=== PATIENT | female | born 1950 | race African-American/Black ===

== ENCOUNTER 2019-02-10 09:33 | Inpatient (IN) | payer BC, MEDICARE ==
[~2019-02-10] VITALS: Ht 160 cm; Wt 78.5 kg
--- NOTE | 2019-02-10 09:50 | NUR ---
PATIENT BIBHUSBAND C/O HER BALANCE BEING OFF. 3 FALLS THIS WEEK. DROWSY UPON WAKING UP THIS AM. ON ROOM AIR, BREATHING EVENLY AND UNLABORED. CONNECTED TO THE MONITOR AND PULSE OX. KEPT COMFORTABLE, WILL CONTINUE TO MONITOR ACCORDINGLY.
[2019-02-10] MEDS ORDERED: IV NS 0.9% 1,000 ML BAG IV ONE (10:00)
[2019-02-10 10:09] LABS: BASOPHILS # (AUTO) 0.1 /CMM (0.0-0.2); EOSINOPHILS % (AUTO) 1.1 % (0.0-6.0); HEMATOCRIT 49 % (33-45); HEMOGLOBIN 16.2 g/dL (11.5-14.8); LYMPHOCYTES # (AUTO) 2.2 /CMM (0.8-4.8); LYMPHOCYTES % (AUTO) 37.7 % (20.0-44.0); MEAN CORPUSCULAR HGB CONC 33 g/dl (31.0-36.0); MEAN CORPUSCULAR VOLUME 90 fL (82-100); MONOCYTES # (AUTO) 0.4 /CMM (0.1-1.30); MONOCYTES % (AUTO) 6.9 % (2.0-12.0); NEUTROPHILS # (AUTO) 3.2 /CMM (1.8-8.9); NEUTROPHILS % (AUTO) 53.3 % (43.0-81.0); PLATELET COUNT (AUTO) 286 /CMM (150-450); RED BLOOD CELL COUNT(AUTO) 5.41 MIL/uL (4.0-5.2); WHITE BLOOD COUNT (AUTO) 5.9 K/uL (4.3-11.0)
[2019-02-10 10:18] LABS: ALANINE AMINOTRANSFERASE 11 U/L (12-78); ALBUMIN 4.5 g/dL (3.4-5.0); ALKALINE PHOSPHATASE 69 U/L (46-116); ASPARTATE AMINOTRANSFERASE 19 U/L (15-37); BILIRUBIN,DIRECT 0.2 mg/dL (0.0-0.2); BILIRUBIN,TOTAL 0.6 mg/dL (0.2-1.0); CALCIUM, SERUM 9.7 mg/dL (8.5-10.1); CARBON DIOXIDE 29 mmol/L (21-32); CHLORIDE 98 mmol/L (98-107); CREATININE 1.5 mg/dL (0.6-1.3); GLUCOSE 103 mg/dL (74-106); SODIUM SERUM 137 mmol/L (136-145); UREA NITROGEN, BLOOD 15 mg/dL (7-18)
[2019-02-10 10:19] LABS: POTASSIUM 2.7 mmol/L (3.5-5.1)
[2019-02-10] MEDS ORDERED: FLUT1BLS IH (10:46)
[2019-02-10] MEDS ORDERED: AMLO-62 PO (10:46)
[2019-02-10] MEDS ORDERED: ERGO500014 PO (10:46)
[2019-02-10] MEDS ORDERED: SERT100T12 PO (10:46)
[2019-02-10] MEDS ORDERED: LAMO100T PO (10:46)
[2019-02-10] MEDS ORDERED: ALPR2TAB7 PO (10:46)
[2019-02-10] MEDS ORDERED: TIOT4MIS5 IH (10:46)
[2019-02-10] MEDS ORDERED: ALBU18HF2 IH (10:46)
[2019-02-10] MEDS ORDERED: HYDR25TA4 PO (10:46)
[2019-02-10] MEDS ORDERED: METO50TA16 PO (10:46)
[2019-02-10] MEDS ORDERED: DESV100T16 PO (10:46)
[2019-02-10] MEDS ORDERED: CARI350T27 PO (10:46)
[2019-02-10] MEDS ORDERED: ASPIRIN 325 MG TABLET PO ONE (11:00)
[2019-02-10] MEDS ORDERED: ASPIRIN 325 MG TABLET ONE (11:01)
[2019-02-10 11:02] LABS: CHOLESTEROL 170 mg/dL (<200); HDL CHOLESTEROL 33 mg/dL (40-60); LDL 115 mg/dL (0-99); TRIGLYCERIDES 98 mg/dL (30-150)
--- NOTE | 2019-02-10 11:09 | NUR ---
324-[address] DONNELLY
[2019-02-10] MEDS ORDERED: POTASSIUM CL. PREMIX PERIPHER. 100 ML ONE (11:12)
[2019-02-10] MEDS: POTASSIUM CL. PREMIX PERIPHER. 50 ML IV SCH ×2 (11:15→13:49)
--- NOTE | 2019-02-10 11:26 | NUR ---
Report given to Joselyn ZIMMERMAN for alyssa.
[2019-02-10 11:40] VITALS: BP 138/79
--- NOTE | 2019-02-10 11:47 | NUR ---
Wheeled patient via gurney accompanied by RN and EMT in no apparent distress noted. IV potassium transferred while infusing. Endorsed to receiving nurse to continue and finish the 2 bags of potassium and made aware. Joselyn ZIMMERMAN at bedside to assume care.
[2019-02-10 11:50] VITALS: BP 138/79
--- NOTE | 2019-02-10 11:50 | NUR ---
MOTIVATIONAL SPEAKER NOTES PATIENT ADMITTED FROM ER TELE ON Dx-OF GAIT [place] FALLS. PATIENT 68Y/OLD FEMALE A/O X4 ABLE TO CORRECTLT INTERPRITE THE ENVIRONMENT. TELE MONITOR ON SR-79. PATIENT WAS COMPLAINING OF HEAD, AND LOWER BACK 3/10 PER PAIN SCALE. ADMINISTERED TYLENOL 650MG PO PRN PER PATIENT REQUEST. SKIN INTACT, V/S TAKEN BP 138/79,P-78, R-19, T-99.1, O2-94ROOM AIR. DVT PUMP ON. NEEDS ATTENDED AND ANTICIPATED. IV ACCESS ON RIGHT AC AREA INTACT INFUSING KCL 50 ML/HR INTACT. Dr LANDRY AWARE OF NEW PATIENT AND MEDICATION. CALL LIGHT WITHIN TO REACH. CONTINUED MONITORING.
[2019-02-10] MEDS ORDERED: ZOLPIDEM TARTRATE 5 MG TABLET PO PRN (13:00)
[2019-02-10] MEDS ORDERED: Z GUARD REMEDY 2 OZ OINT TP PRN (13:00)
[2019-02-10] MEDS ORDERED: ONDANSETRON HCL/PF 4 MG/2 ML VIAL IVP PRN (13:00)
[2019-02-10] MEDS ORDERED: MAG HYDROX/AL HYDROX/SIMETH 30 ML UDC PO PRN (13:00)
[2019-02-10] MEDS ORDERED: MAGNESIUM HYDROXIDE 30 ML UDC PO PRN (13:00)
[2019-02-10] MEDS ORDERED: ALPRAZOLAM 1 MG TABLET PO PRN (13:00)
[2019-02-10] MEDS ORDERED: ACETAMINOPHEN 325 MG TABLET PO PRN (13:00)
[2019-02-10] MEDS ORDERED: ALBUTEROL FS 2.5 MG/0.5 ML VIAL.NEB NEB PRN (13:30)
[2019-02-10] MEDS: IV NS 0.9% 1,000 ML IV PRN (13:44)
[2019-02-10] MEDS: ACETAMINOPHEN 325 MG TABLET PO PRN (13:44)
[2019-02-10] MEDS: LamoTRIgine 100 MG TABLET PO SCH ×3 (13:46→22:00)
--- NOTE | 2019-02-10 14:00 | NUR ---
RN NOTES SEEN PATIENT BY HOSPITALIST Dr LANDRY, MEDICATION WERE ADMINISTERED FOR PAIN EFFECTIVE. NEXT TO THE BED. PATIENT TOLERATED LUNCH WELL. CONTINUED MONITORING.
[2019-02-10] MEDS: ENOXAPARIN SODIUM 30 MG/0.3 ML DISP.SYRIN SQ SCH (14:53)
[2019-02-10 16:00] VITALS: BP 130/74
[2019-02-10] MEDS: METOPROLOL TARTRATE 50 MG TABLET PO SCH (17:40)
[2019-02-10] MEDS: HYDROCHLOROTHIAZIDE 25 MG TABLET PO SCH (17:40)
[2019-02-10] MEDS: HYDROCODONE/APAP 5/325MG 1 EACH TABLET PO PRN (18:38)
--- NOTE | 2019-02-10 18:38 | NUR ---
rn notes patient was companding of pain lower back 6/10 pain scale ,administered narco 5/325. no sob, no chest pain or seizure, patient has unsteady gait safety precaution maintained all the time. Administered scheduled medication, v/s stable, assist patient to the bathroom. infusing NS at 75 ml/hr on right ac area intact. belonging checked and signed. call light within to each. endorsed oncoming nurse follow plan of care.
--- NOTE | 2019-02-10 19:40 | NUR ---
RN OPENING NOTES RECEIVED PATIENT AWAKE, RESTING COMFORTABLY IN BED. PATIENT A/O X 4, ABLE TO VERBALIZE NEEDS CLEARLY. ON TELE MONITOR, SR. NO COMPLAINTS OF PAIN OR DISCOMFORT AT THIS TIME. IV SITE ON RAC, INTACT AND PATENT, NO SIGNS OF INFECTION/INFILTRATION, INFUSING NS AT 75 ML/HR. SAFETY PRECAUTIONS IMPLEMENTED; CALL LIGHT WITHIN REACH, BED LOWEST POSITION, BED LOCKED, SIDE RAILS UP X2. WILL CLOSELY MONITOR PATIENT.
[2019-02-10 20:00] VITALS: BP_SYST 138; BP_SYST 85; BP_DIAS 57; BP_DIAS 88
--- NOTE | 2019-02-10 22:40 | NUR ---
RN NOTES PATIENT REFUSED LAMICTAL FOR THE PM. PATIENT STATES THE MEDICATION MAKES HER FEEL DIZZY WHEN SHE TAKES IT AND IT DOES NOT MAKE HER FEEL RIGHT. EXPLAINED THE RISKS AND BENEFITS OF MEDICATION. PATIENT INSISTS ON REFUSING.
[2019-02-11] VITALS (7 sets, daily range): BP systolic 133–150; BP diastolic 72–89
--- NOTE | 2019-02-11 03:00 | NUR ---
RN NOTES RTMIO, MADE AWARE OF PATIENT'S NEBULIZER TREATMENTS. PATIENT HAS NO COMPLAINTS AT THIS TIME CONCERNING THE BREATHING TX MISSED. PATIENT NOT IN RESPIRATORY DISTRESS. PATIENT DENIES SHORTNESS OF BREATH. BREATHING EVEN AND UNLABORED ON ROOM AIR. TOLERATING WELL. WILL CONTINUE TO MONITOR PATIENT.
--- NOTE | 2019-02-11 04:01 | NUR ---
RN NOTES PATIENT ABLE TO AMBULATE WITH ASSISTANCE TO BATHROOM WITH AMADOU PAIGE. UPON ARRIVAL BACK TO BED, ORTHOSTATIC BP WERE TAKEN. LYIN/75, PULSE 62 SITTIN/95, PULSE 75 STANDIN/109, PULSE 88
[2019-02-11] MEDS: IV NS 0.9% 1,000 ML IV PRN (05:16)
[2019-02-11 06:22] LABS: BASOPHILS % (AUTO) 0.4 % (0.0-2.0); EOSINOPHILS % (AUTO) 3.2 % (0.0-6.0); HEMATOCRIT 40 % (33-45); HEMOGLOBIN 13.2 g/dL (11.5-14.8); LYMPHOCYTES # (AUTO) 1.6 /CMM (0.8-4.8); LYMPHOCYTES % (AUTO) 35.5 % (20.0-44.0); MEAN CORPUSCULAR HGB CONC 33 g/dl (31.0-36.0); MEAN CORPUSCULAR VOLUME 90 fL (82-100); MONOCYTES # (AUTO) 0.4 /CMM (0.1-1.30); MONOCYTES % (AUTO) 8.6 % (2.0-12.0); NEUTROPHILS # (AUTO) 2.3 /CMM (1.8-8.9); NEUTROPHILS % (AUTO) 52.3 % (43.0-81.0); PLATELET COUNT (AUTO) 218 /CMM (150-450); RED BLOOD CELL COUNT(AUTO) 4.43 MIL/uL (4.0-5.2); WHITE BLOOD COUNT (AUTO) 4.4 K/uL (4.3-11.0)
[2019-02-11 06:35] LABS: CALCIUM, SERUM 8.6 mg/dL (8.5-10.1); CREATININE 1.1 mg/dL (0.6-1.3); MAGNESIUM 1.7 mg/dL (1.8-2.4); PHOSPHORUS 2.5 mg/dL (2.5-4.9)
[2019-02-11 06:40] LABS: POTASSIUM 2.8 mmol/L (3.5-5.1)
[2019-02-11 06:46] LABS: THYROID STIMULATING HORMONE 1.793 uIU/mL (0.358-3.74)
--- NOTE | 2019-02-11 06:53 | NUR ---
RN CLOSING NOTES PATIENT IS CURRENTLY ASLEEP, RESTING COMFORTABLY IN BED, EASILY AROUSABLE TO VOICE. NO SIGNS OF RESPIRATORY DISTRESS, PATIENT DENIES SHORTNESS OF BREATH. BREATHING EVEN AND UNLABORED ON ROOM AIR. NO COMPLAINTS OF ANY PAIN OR DISCOMFORT AT THIS TIME. ALL NEEDS ATTENDED TO AT THIS TIME. PATIENT STABLE. IV SITE ON RAC REMAINS INTACT AND PATENT, NO SIGNS OF INFECTION/INFILTRATION, INFUSING NS AT 75 ML/HR. SAFETY PRECAUTIONS IMPLEMENTED; CALL LIGHT WITHIN REACH, BED LOWEST POSITION, BED LOCKED, SIDE RAILS UP X2. WILL CONTINUE TO CLOSELY MONITOR PATIENT AND WILL ENDORSE TO DAYSHIFT NURSE FOR CONTINUITY OF CARE.
--- NOTE | 2019-02-11 07:02 | NUR ---
RN NOTES POTASSIUM RESULT IS 2.8. WILL ENDORSE TO DAYSHIFT NURSE.
--- NOTE | 2019-02-11 08:00 | NUR ---
MS RN NOTES PATIENT IN BED RESTING NO SOB OR ACUTE DISTRESS NOTED. PATIENT ALERT, ORIENTED X3. DENIES ANY PAIN OR DISCOMFORT. PERIPHERAL IV INTACT PATENT. BED IN LOW LOCKED POSITION, CALL LIGHT WITHIN REACH. WILL CONTINUE TO MONITOR.
[2019-02-11] MEDS: IPRATROPIUM NEB FS 0.5 MG/2.5 ML AMPUL.NEB NEB SCH ×3 (08:32→19:53)
[2019-02-11] MEDS: FLUTICASONE/VILANTEROL 1 EACH BLST.W.DEV IH SCH (08:56)
[2019-02-11] MEDS: SERTRALINE HCL 50 MG TABLET PO SCH (08:57)
[2019-02-11] MEDS: HYDROCHLOROTHIAZIDE 25 MG TABLET PO SCH ×2 (08:58→17:54)
[2019-02-11] MEDS: METOPROLOL TARTRATE 50 MG TABLET PO SCH ×2 (08:59→17:00)
[2019-02-11] MEDS: AMLODIPINE BESYLATE 10 MG TABLET PO SCH (08:59)
[2019-02-11] MEDS ORDERED: POTASSIUM CHLORIDE 20 MEQ TAB.PRT.SR PO ONE ×2 (10:00→18:00)
[2019-02-11] MEDS: Magnesium 1GM/D5W 100ML PREMIX 100 ML IV SCH ×2 (10:55→15:05)
[2019-02-11] MEDS ORDERED: IV NS 0.9% 250 ML IV ONE (11:55)
[2019-02-11] MEDS ORDERED: IOHEXOL-350 100 ML VIAL IV ONE (11:55)
[2019-02-11] MEDS ORDERED: CT SWABBABLE VALVE TRANS SET 1 EA INFUS.SET MC ONE (11:55)
[2019-02-11] MEDS: POTASSIUM CL. PREMIX PERIPHER. 50 ML IV SCH ×4 (12:00→16:04)
--- NOTE | 2019-02-11 12:02 | NUR ---
MS RN NOTES PATIENT TAKEN TO RADIOLOGY FOR CTA AND CT NECK WITH IV CONTRAST.
--- NOTE | 2019-02-11 13:30 | NUR ---
MS RN NOTES PATIENT RETURNED TO ROOM IN STABLE CONDITION.
[2019-02-11] MEDS: HYDROCODONE/APAP 5/325MG 1 EACH TABLET PO PRN (16:14)
--- NOTE | 2019-02-11 18:30 | NUR ---
MS RN NOTES PATIENT REPORTS SEEING A SNAIL ON THE WALL. ORIENTED PATIENT TO REALITY. STATING THERE IS NO SNAIL AT THE WALL. GOT PATIENT UP TO COME CLOSE TO THE WALL TO EXAMINE IT CLOSER. PATIENT CALMED. RETURNED TO BED. DR. RAIN MADE AWARE OF THE SITUATION. AWAITING FOR CONSULT.
--- NOTE | 2019-02-11 19:20 | NUR ---
MS RN NOTES PATIENT IN BED RESTING, NO SOB OR ACUTE DISTRESS NOTED. ALL DUE MEDICATIONS ADMINISTERED. ALL NEEDS MET. ENDORSED CARE TO PM SHIFT.
--- NOTE | 2019-02-11 20:25 | NUR ---
received alert orientated speech clear eye glasses on moving all ext. good eye contact call light within her reach ambulated her to the bathroom. unsteady gait thought process clear and intact. voided without problem back to bed lungs clear
[2019-02-11] MEDS: ENOXAPARIN SODIUM 30 MG/0.3 ML DISP.SYRIN SQ SCH (21:15)
[2019-02-11] MEDS: LamoTRIgine 100 MG TABLET PO SCH (21:16)
[2019-02-11] MEDS: ACETAMINOPHEN 325 MG TABLET PO PRN (21:16)
[2019-02-12] VITALS: BP 133/74
[2019-02-12] MEDS: IPRATROPIUM NEB FS 0.5 MG/2.5 ML AMPUL.NEB NEB SCH ×3 (01:30→13:13)
[2019-02-12] MEDS: ACETAMINOPHEN 325 MG TABLET PO PRN ×2 (03:17→08:54)
--- NOTE | 2019-02-12 03:24 | NUR ---
MEDICATED WITH TYLENOL FOR C/O RIGHT HIP PAIN. STATED THIS IS NOT NEW PAIN COMES AND GOES , SHE SAYS TYLENOL IS EFFECTIVE FOR RELIEF.
[2019-02-12 04:18] VITALS: BP 133/77
[2019-02-12] MEDS: IV NS 0.9% 1,000 ML IV PRN (05:22)
--- NOTE | 2019-02-12 06:21 | NUR ---
ENDING NOTES: ALERT AND ORIENTATED. AMBULATED TO THE BATHROOM THIS AM NEEDING MINIMAL ASSIST. UNSTEADY ON HER LEGS. THOUGHT PROCESS PRESENT . USING HER CELL PHONE SPEECH CLEAR NO HALLUCINATIONS THIS 12 HOURS. VERBALIZES HER NEEDS
[2019-02-12 06:23] LABS: CALCIUM, SERUM 9.1 mg/dL (8.5-10.1); MAGNESIUM 1.9 mg/dL (1.8-2.4); POTASSIUM 3.4 mmol/L (3.5-5.1)
--- NOTE | 2019-02-12 08:00 | NUR ---
MS RN NOTES PATIENT IN BED RESTING. ALERT, ORIENTED X3 DENIES ANY PAIN OR DISCOMFORT. PERIPHERAL IV INTACT PATENT. BED IN LOW LOCKED POSITION, CALL LIGHT WITHIN REACH. WILL CONTINUE TO MONITOR.
[2019-02-12] MEDS: HYDROCHLOROTHIAZIDE 25 MG TABLET PO SCH (08:53)
[2019-02-12] MEDS: SERTRALINE HCL 50 MG TABLET PO SCH (08:54)
[2019-02-12] MEDS: METOPROLOL TARTRATE 50 MG TABLET PO SCH (09:00)
[2019-02-12] MEDS ORDERED: POTASSIUM CHLORIDE 20 MEQ TAB.PRT.SR PO ONE (09:00)
[2019-02-12] MEDS ORDERED: POTASSIUM CHLORIDE 20 MEQ TAB.PRT.SR PO SCH (09:00)
[2019-02-12 09:04] VITALS: BP 144/81
[2019-02-12] MEDS: AMLODIPINE BESYLATE 10 MG TABLET PO SCH (09:04)
[2019-02-12] MEDS: FLUTICASONE/VILANTEROL 1 EACH BLST.W.DEV IH SCH (09:09)
--- NOTE | 2019-02-12 09:45 | NUR ---
MS RN NOTES PATIENTS SON VISITED PATIENT BOTH PATIENT AND SON AGREED FOR PATIENT TO LEAVE AMA DUE TO PATIENTS SONS BITA IS A NURSE WHO WORKS AT [employer]. AND THEY PREFER P TO GO TO [employer] [facility] [employer] [facility] [employer] ([facility] EDUCATIONS PROVIDED AND RISKS OF LEAVING AMA. AMA FORM FILLED OUT. PATIENTS PERIPHERAL IV REMOVED WITH MINIMAL BLEEDING. LORNE CERTIFIED CAREGIVER MADE AWARE SPOKE TO PATIENT. PATIENTS INSISTS ON LEAVING AMA. ID BAND REMOVED. ALL BELONGINGS RETURNED. PATIENT LEFT WITH SON.
== END 2019-02-12 09:45 | disposition left against medical advice (07) | DRG 684 ==
LOC: ER 09:33 → TELE 11:14 → MED 02-11 08:51 → TELE 02-11 08:51 → MED 02-12 08:50
PROVIDERS: ATTEND Nurse Practitioner Acute Care
DX: N17.0 Acute kidney failure with tubular necrosis (principal); E86.0 Dehydration; R26.9 Unspecified abnormalities of gait and mobility; G56.02 Carpal tunnel syndrome, left upper limb; F32.9 Major depressive disorder, single episode, unspecified; J45.909 Unspecified asthma, uncomplicated; R29.6 Repeated falls; E83.42 Hypomagnesemia; I10 Essential (primary) hypertension; E87.6 Hypokalemia; R55 Syncope and collapse; Z91.81 History of falling
CPT/HCPCS: 36415; 70450-TC; 70496-TC; 70498-TC; 71045-TC; 80048-TC; 80061-TC; 80076-TC; 83735-TC; 84100-TC; 84439-TC; 84443-TC; 84484-TC; 85025-TC; 85730-TC; 87081-TC; 93307-TC; 97116-TC; 97530-TC; G0378; J1650; J2405; J3475; J3480; J7030; J7050; Q9967

== ENCOUNTER 2019-02-15 11:04 | Inpatient (IN) | payer OTHER, MEDICARE ==
[~2019-02-15] VITALS: Ht 160 cm; Wt 78.0 kg
[~2019-02-15 11:04] MED LIST: ALBU18HF2 IH; ALPR2TAB7 PO; AMLO-62 PO; CARI350T27 PO; DESV100T16 PO; ERGO500014 PO; FLUT1BLS IH; HYDR25TA4 PO; LAMO100T PO; METO50TA16 PO; SERT100T12 PO; TIOT4MIS5 IH
--- NOTE | 2019-02-15 11:16 | NUR ---
Sent by Dr. Eaton for hallucinations. PATIENT ASSISTED TO ROOM 7, A/OX4, BREATHING EVEN AND UNLABORED, NO SOB NOTED, FAMILY AT BEDSIDE, PT C/O "HAVING HALLUCINATIONS." DR. GILL AT BEDSIDE FOR EVAL.
--- NOTE | 2019-02-15 11:25 | NUR ---
URINE SAMPLE OBTAINED AND SENT TO LAB.
--- NOTE | 2019-02-15 11:39 | NUR ---
ART KNOCK UP ASSEMBLER CLINICAN PAGED FOR EVAL
[2019-02-15 11:46] LABS: BASOPHILS # (AUTO) 0.1 /CMM (0.0-0.2); BASOPHILS % (AUTO) 0.9 % (0.0-2.0); EOSINOPHILS % (AUTO) 0.1 % (0.0-6.0); HEMATOCRIT 47 % (33-45); HEMOGLOBIN 15.7 g/dL (11.5-14.8); LYMPHOCYTES # (AUTO) 1.4 /CMM (0.8-4.8); LYMPHOCYTES % (AUTO) 15.2 % (20.0-44.0); MEAN CORPUSCULAR HGB CONC 34 g/dl (31.0-36.0); MEAN CORPUSCULAR VOLUME 90 fL (82-100); MONOCYTES # (AUTO) 0.8 /CMM (0.1-1.30); MONOCYTES % (AUTO) 9.4 % (2.0-12.0); NEUTROPHILS # (AUTO) 6.7 /CMM (1.8-8.9); NEUTROPHILS % (AUTO) 74.4 % (43.0-81.0); PLATELET COUNT (AUTO) 299 /CMM (150-450); RED BLOOD CELL COUNT(AUTO) 5.19 MIL/uL (4.0-5.2)
[2019-02-15 11:59] LABS: APPEARANCE,URINE Clear (CLEAR); BILIRUBIN,URINE LARGE (NEGATIVE); BLOOD, URINE Small Ery/uL (NEGATIVE); COLOR,URINE Yellow (YELLOW); KETONES,URINE 15 (NEGATIVE); LEUKOCYTE ESTERASE ,URINE Trace (NEGATIVE); NITRITE, URINE Negative (NEGATIVE); PROTEIN,URINE 100 mg/dl (NEGATIVE); UGLUCOSE Negative (NEGATIVE)
--- NOTE | 2019-02-15 11:59 | NUR ---
CALLED FOR GPS BED
[2019-02-15 12:05] LABS: BACTERIA,URINE Rare /HPF (None Seen); RBC,URINE 0-2 /HPF (0-2); SQUAMOUS EPITHELIAL CELL,UR Few /HPF (None Seen)
[2019-02-15 12:08] LABS: ALANINE AMINOTRANSFERASE 17 U/L (12-78); ALBUMIN 4.4 g/dL (3.4-5.0); ALCOHOL, BLOOD < 3 mg/dL (0-0); ALKALINE PHOSPHATASE 61 U/L (46-116); ASPARTATE AMINOTRANSFERASE 37 U/L (15-37); BILIRUBIN,DIRECT 0.2 mg/dL (0.0-0.2); BILIRUBIN,TOTAL 0.8 mg/dL (0.2-1.0); CALCIUM, SERUM 10.1 mg/dL (8.5-10.1); CARBON DIOXIDE 22 mmol/L (21-32); CHLORIDE 98 mmol/L (98-107); CREATININE 2.8 mg/dL (0.6-1.3); GLUCOSE 108 mg/dL (74-106); SODIUM SERUM 136 mmol/L (136-145); TOTAL PROTEIN, SERUM 8.3 g/dL (6.4-8.2); UREA NITROGEN, BLOOD 40 mg/dL (7-18)
[2019-02-15 12:12] LABS: ACETAMINOPHEN 0 ug/ml (10-30); POTASSIUM 2.7 mmol/L (3.5-5.1)
[2019-02-15] MEDS ORDERED: POTASSIUM CHLORIDE 20 MEQ TAB.PRT.SR PO ONE ×3 (12:13→23:00)
--- NOTE | 2019-02-15 12:30 | NUR ---
ART CLINICIAN AT BEDSIDE FOR EVAL.
--- NOTE | 2019-02-15 13:03 | NUR ---
FOLLOWED UP FOR GPS BED
[2019-02-15] MEDS ORDERED: HYDR-3980 PO (13:16)
--- NOTE | 2019-02-15 13:17 | NUR ---
GOT BED 211-1
--- NOTE | 2019-02-15 13:44 | NUR ---
report given to keiko brooks for alyssa.
[2019-02-15 15:00] VITALS: BP 113/67
--- NOTE | 2019-02-15 15:12 | NUR ---
patient transferred to [facility], in stable condition.
[2019-02-15 15:53] VITALS: BP 127/68
[2019-02-15] MEDS ORDERED: BLOOD SUGAR DIAGNOSTIC 1 EACH STRIP IN ONE (16:30)
[2019-02-15] MEDS ORDERED: MAGNESIUM HYDROXIDE 30 ML UDC PO PRN (16:30)
[2019-02-15] MEDS ORDERED: MAG HYDROX/AL HYDROX/SIMETH 30 ML UDC PO PRN (16:30)
--- NOTE | 2019-02-15 17:47 | NUR ---
RN NOTE/ADMISSION - PT IS A 68 Y/O FEMALE ADMITTED TO UNIT ON A 5150 GD @1315 02/15/2019. V/S11, HR 87, RR 18, TEMP 98.0, O2 SAT 96% RA. PT W NKDA. PT DENIES SI, HI AT THIS TIME. ADMITS TO - 'HEARING MUSIC' IN HER EARS WHICH 'STARTED RECENTLY' PT ASKED RN 'DO YOU KNOW WHERE ITS COMING FROM?' PT STATES THAT SHES BEEN LOSING BALANCE AND HER EQUILIBRIUM IS OFF. PT ALERT, ORIENTED TO PERSON PLACE AND APPROXIMATE TIME. PT REMEMBERS RN NAME AFTER SEVERAL DIFFERENT INTERACTIONS. PT W GOOD EYE CONTACT, SMILES AT LIGHT JOKES... PT MOVES ALL EXTREMITIES. REQUIRES ASSIST/SUPERVISION W AMBULATION DUE TO PREVIOUS HX FALLS. PT CLEAN, WELL GROOMED, AFFECT APPROPRIATE. WRIST ID BAND ON PT, ORDERS WRITTEN, PHOTO TAKEN, SKIN INTACT PER PT THOUGH CURRENTLY REFUSES SKIN CHECK BY THIS RN. DIETARY TO SEND SNACK. DIET ORDERED WELL. VALUABLES PLACED IN SAFE AND PERSONAL OBJECTS LOCKED AFTER INVENTORIED IN PT LOCKER.
[2019-02-15] MEDS ORDERED: CARISOPRODOL 350 MG TABLET PO PRN (18:00)
[2019-02-15] MEDS ORDERED: HYDROCODONE/APAP 10/325MG 1 EA TABLET PO PRN (18:00)
[2019-02-15] MEDS ORDERED: ERGOCALCIFEROL (VITAMIN D 2) 50,000 UNIT CAPSULE PO SCH (18:00)
[2019-02-15] MEDS ORDERED: IPRATROPIUM NEB FS 0.5 MG/2.5 ML AMPUL.NEB NEB PRN (18:30)
[2019-02-15 19:10] LABS: CALCIUM, SERUM 9.7 mg/dL (8.5-10.1); CREATININE 2.9 mg/dL (0.6-1.3); MAGNESIUM 1.8 mg/dL (1.8-2.4); POTASSIUM 2.9 mmol/L (3.5-5.1)
[2019-02-15 19:22] LABS: THYROID STIMULATING HORMONE 1.15 uIU/mL (0.358-3.74)
--- NOTE | 2019-02-15 19:22 | NUR ---
CALLED JAGDEEP VIGIL @ [address], NO RESPONSE. LEFT A MESSAGE VIA HIS CELL PHONE AT [phone] AND THAT HE CAN CALL BACK AT [facility],
--- NOTE | 2019-02-15 19:29 | NUR ---
JAGDEEP VIGIL CALLED BACK TO SAY THAT HE DOES NOT KNOW THE PATIENT. CALLED AGAIN JAGDEEP VIGIL AT [phone], UNABLE TO LEAVE A MESSAGE, THE NUMBER HAS BEEN DISCONNECTED. CALLED [phone], TALKED TO JAGDEEP AND SAID THAT HE DOES NOT KNOW THE PATIENT.
[2019-02-15] MEDS ORDERED: ALBUTEROL FS 2.5 MG/0.5 ML VIAL.NEB NEB PRN (19:30)
[2019-02-15] MEDS ORDERED: hydrALAZINE HCL 25 MG TABLET PO PRN (19:30)
--- NOTE | 2019-02-15 19:44 | NUR ---
A/O X3, GAVE ME HER MOTHER'S TELEPHONE [phone], TO CALL.V
--- NOTE | 2019-02-15 19:48 | NUR ---
CALLED KI DOYLE, PATIENT'S MOTHER [phone]. LEFT A MESSAGE THAT LYLE IS HERE AT [facility] IN ROOM 211-A [phone].
[2019-02-15 20:16] VITALS: BP 126/73
[2019-02-15] MEDS: LORAZEPAM 1 MG TABLET PO PRN (21:25)
[2019-02-15] MEDS: LamoTRIgine 100 MG TABLET PO SCH (21:25)
[2019-02-15] MEDS: risperiDONE 1 MG TABLET PO SCH (21:25)
--- NOTE | 2019-02-15 21:27 | NUR ---
REQUESTED FOR SLEEPING PILL, SHE ALSO STATED THAT SHE FEELS A LITTLE ANXIOUS, HAS SOME SHAKY MOVEMENT NOTED ON BOTH HANDS, LORAZEPAM 1 MG PO GIVEN.
[2019-02-15] MEDS ORDERED: LamoTRIgine 100 MG TABLET PO SCH (22:00)
[2019-02-16 07:02] LABS: BASOPHILS % (AUTO) 0.4 % (0.0-2.0); EOSINOPHILS % (AUTO) 0.4 % (0.0-6.0); HEMATOCRIT 43 % (33-45); LYMPHOCYTES # (AUTO) 1.4 /CMM (0.8-4.8); LYMPHOCYTES % (AUTO) 25.6 % (20.0-44.0); MEAN CORPUSCULAR HGB CONC 33 g/dl (31.0-36.0); MEAN CORPUSCULAR VOLUME 90 fL (82-100); MONOCYTES # (AUTO) 0.6 /CMM (0.1-1.30); MONOCYTES % (AUTO) 10.8 % (2.0-12.0); NEUTROPHILS # (AUTO) 3.4 /CMM (1.8-8.9); NEUTROPHILS % (AUTO) 62.8 % (43.0-81.0); PLATELET COUNT (AUTO) 240 /CMM (150-450); RED BLOOD CELL COUNT(AUTO) 4.74 MIL/uL (4.0-5.2); WHITE BLOOD COUNT (AUTO) 5.4 K/uL (4.3-11.0)
[2019-02-16 07:15] LABS: ALBUMIN 3.7 g/dL (3.4-5.0); BILIRUBIN,TOTAL 0.7 mg/dL (0.2-1.0); CALCIUM, SERUM 9.6 mg/dL (8.5-10.1); CREATININE 3.2 mg/dL (0.6-1.3); PHOSPHORUS 5.4 mg/dL (2.5-4.9); POTASSIUM 2.9 mmol/L (3.5-5.1); TOTAL PROTEIN, SERUM 7.3 g/dL (6.4-8.2)
[2019-02-16 07:28] LABS: CHOLESTEROL 147 mg/dL (<200); HDL CHOLESTEROL 22 mg/dL (40-60); LDL 95 mg/dL (0-99); TRIGLYCERIDES 92 mg/dL (30-150)
[2019-02-16 08:00] VITALS: BP 100/65
[2019-02-16] MEDS ORDERED: POTASSIUM CHLORIDE 20 MEQ TAB.PRT.SR PO ONE (08:00)
[2019-02-16] MEDS: METOPROLOL TARTRATE 50 MG TABLET PO SCH ×2 (08:15→17:00)
[2019-02-16] MEDS: AMLODIPINE BESYLATE 10 MG TABLET PO SCH (08:15)
[2019-02-16] MEDS: POTASSIUM CHLORIDE 20 MEQ TAB.PRT.SR PO SCH (08:48)
[2019-02-16] MEDS: FLUTICASONE/VILANTEROL 1 EACH BLST.W.DEV IH SCH ×2 (08:48→18:25)
[2019-02-16] MEDS ORDERED: HYDROCHLOROTHIAZIDE 25 MG TABLET PO SCH (09:00)
[2019-02-16] MEDS ORDERED: BENAZEPRIL HCL 20 MG TABLET PO SCH (09:00)
--- NOTE | 2019-02-16 14:54 | NUR ---
ua sent as per orders.dr. shipman here and given status report on pt.
--- NOTE | 2019-02-16 15:44 | NUR ---
admit med bottles from home listed and taken to pharmacy.pt. signed envelope.
--- NOTE | 2019-02-16 15:45 | NUR ---
dr. shipman given phone # of spouse-to follow up.
[2019-02-16 16:00] VITALS: BP 100/63
[2019-02-16 16:34] LABS: CREATININE 2.7 mg/dL (0.6-1.3)
[2019-02-16 16:35] LABS: CREATININE, URINE 552.3 MG/DL (30.0-125.0)
--- NOTE | 2019-02-16 17:12 | NUR ---
echo report called to dr. quiñones.no orders.
--- NOTE | 2019-02-16 19:48 | NUR ---
LYING IN BED, COMFORTABLE, NO CONCERNS/COMPLAINTS MADE DURING INITIAL ROUNDING. DEPRESSED, PLEASANT, CALM, COOPERATIVE, INTERACTS WHEN ENGAGED. NO APPARENT DISTRESS NOTED. SHE DOES NOT HEAR ANY VOICES AT THIS TIME.
[2019-02-16 19:59] VITALS: BP 96/63
[2019-02-16] MEDS: risperiDONE 1 MG TABLET PO SCH (21:41)
[2019-02-16] MEDS: LamoTRIgine 100 MG TABLET PO SCH (21:41)
[2019-02-16] MEDS: LORAZEPAM 1 MG TABLET PO PRN (21:41)
--- NOTE | 2019-02-16 21:41 | NUR ---
ATIVAN 1 MG TAB 1 PO GIVEN PER PATIENT'S REQUEST.
[2019-02-17 07:07] LABS: BASOPHILS # (AUTO) 0.1 /CMM (0.0-0.2); BASOPHILS % (AUTO) 0.8 % (0.0-2.0); EOSINOPHILS % (AUTO) 0.6 % (0.0-6.0); HEMATOCRIT 42 % (33-45); HEMOGLOBIN 13.9 g/dL (11.5-14.8); LYMPHOCYTES # (AUTO) 1.7 /CMM (0.8-4.8); LYMPHOCYTES % (AUTO) 25.2 % (20.0-44.0); MEAN CORPUSCULAR HGB CONC 33 g/dl (31.0-36.0); MEAN CORPUSCULAR VOLUME 91 fL (82-100); MONOCYTES # (AUTO) 0.6 /CMM (0.1-1.30); MONOCYTES % (AUTO) 9.1 % (2.0-12.0); NEUTROPHILS # (AUTO) 4.3 /CMM (1.8-8.9); NEUTROPHILS % (AUTO) 64.3 % (43.0-81.0); PLATELET COUNT (AUTO) 234 /CMM (150-450); RED BLOOD CELL COUNT(AUTO) 4.63 MIL/uL (4.0-5.2); WHITE BLOOD COUNT (AUTO) 6.6 K/uL (4.3-11.0)
[2019-02-17 07:40] LABS: CALCIUM, SERUM 9.3 mg/dL (8.5-10.1); MAGNESIUM 2.1 mg/dL (1.8-2.4); PHOSPHORUS 3.4 mg/dL (2.5-4.9); POTASSIUM 3.5 mmol/L (3.5-5.1)
[2019-02-17 08:13] VITALS: BP 100/94
[2019-02-17] MEDS: POTASSIUM CHLORIDE 20 MEQ TAB.PRT.SR PO SCH (08:19)
[2019-02-17] MEDS: AMLODIPINE BESYLATE 10 MG TABLET PO SCH (08:20)
[2019-02-17] MEDS: METOPROLOL TARTRATE 50 MG TABLET PO SCH ×2 (08:21→16:27)
[2019-02-17] MEDS: FLUTICASONE/VILANTEROL 1 EACH BLST.W.DEV IH SCH ×2 (08:24→16:26)
[2019-02-17 16:13] VITALS: BP 133/69
[2019-02-17] MEDS: ACETAMINOPHEN 325 MG TABLET PO PRN (16:31)
[2019-02-17 19:54] VITALS: BP 114/75
--- NOTE | 2019-02-17 20:02 | NUR ---
FAMILY VISITS AT THIS TIME.
[2019-02-17] MEDS: risperiDONE 1 MG TABLET PO SCH (21:14)
[2019-02-17] MEDS: LamoTRIgine 100 MG TABLET PO SCH (21:14)
[2019-02-17] MEDS: LORAZEPAM 1 MG TABLET PO PRN (21:14)
--- NOTE | 2019-02-17 21:14 | NUR ---
PATIENT REQUESTED FOR HER SLEEPING POILL, ATIVAN 1 MG TAB 1 PO GIVEN.
[2019-02-18 07:23] LABS: BASOPHILS # (AUTO) 0.1 /CMM (0.0-0.2); EOSINOPHILS % (AUTO) 1.9 % (0.0-6.0); HEMATOCRIT 41 % (33-45); HEMOGLOBIN 13.5 g/dL (11.5-14.8); LYMPHOCYTES # (AUTO) 1.6 /CMM (0.8-4.8); LYMPHOCYTES % (AUTO) 30.3 % (20.0-44.0); MEAN CORPUSCULAR HGB CONC 33 g/dl (31.0-36.0); MEAN CORPUSCULAR VOLUME 91 fL (82-100); MONOCYTES # (AUTO) 0.4 /CMM (0.1-1.30); MONOCYTES % (AUTO) 8.3 % (2.0-12.0); NEUTROPHILS # (AUTO) 3.1 /CMM (1.8-8.9); NEUTROPHILS % (AUTO) 58.5 % (43.0-81.0); PLATELET COUNT (AUTO) 226 /CMM (150-450); RED BLOOD CELL COUNT(AUTO) 4.53 MIL/uL (4.0-5.2); WHITE BLOOD COUNT (AUTO) 5.4 K/uL (4.3-11.0)
[2019-02-18 07:37] LABS: CALCIUM, SERUM 9.3 mg/dL (8.5-10.1); CREATININE 1.3 mg/dL (0.6-1.3); PHOSPHORUS 2.5 mg/dL (2.5-4.9); POTASSIUM 3.9 mmol/L (3.5-5.1)
[2019-02-18 08:00] VITALS: BP 118/68
[2019-02-18] MEDS: FLUTICASONE/VILANTEROL 1 EACH BLST.W.DEV IH SCH ×2 (08:02→16:11)
[2019-02-18] MEDS: POTASSIUM CHLORIDE 20 MEQ TAB.PRT.SR PO SCH (08:16)
[2019-02-18] MEDS: METOPROLOL TARTRATE 50 MG TABLET PO SCH ×2 (08:17→16:10)
[2019-02-18] MEDS: AMLODIPINE BESYLATE 10 MG TABLET PO SCH (08:17)
--- NOTE | 2019-02-18 13:27 | NUR ---
RN NOTE: PATIENT WAS SEEN BY PSYCHIATRIST DR. ESPINOSA. SIGNED VOLUNTARY HOLD FORM.
--- NOTE | 2019-02-18 13:40 | NUR ---
Family Contact: PEYTON called the pts son, Brody Burrell ([phone]), and informed him that the pt may be discharged the next day or Monday and stated that she will be coordinating the discharge with him. He stated that he would be available to pick her up around 5pm.
--- NOTE | 2019-02-18 13:42 | NUR ---
Initial Discharge Plan: Pt resides in her home with her located at [address] [place] [address]; ([phone]). Per pt, she would like to return to her home. SW will work with the pt and the MD regarding appropriate discharge planning. SW will form a safe and proper discharge.
[2019-02-18 16:00] VITALS: BP 139/91
[2019-02-18 20:13] VITALS: BP 146/85
[2019-02-18] MEDS: risperiDONE 1 MG TABLET PO SCH (20:16)
[2019-02-18] MEDS: ACETAMINOPHEN 325 MG TABLET PO PRN ×2 (20:23→22:30)
[2019-02-18] MEDS ORDERED: LamoTRIgine 100 MG TABLET PO SCH (22:00)
[2019-02-18] MEDS: LORAZEPAM 1 MG TABLET PO PRN (22:31)
[2019-02-19 08:00] VITALS: BP 122/76
[2019-02-19] MEDS: METOPROLOL TARTRATE 50 MG TABLET PO SCH (09:00)
[2019-02-19] MEDS: AMLODIPINE BESYLATE 10 MG TABLET PO SCH (09:00)
[2019-02-19] MEDS: POTASSIUM CHLORIDE 20 MEQ TAB.PRT.SR PO SCH (09:00)
[2019-02-19] MEDS: FLUTICASONE/VILANTEROL 1 EACH BLST.W.DEV IH SCH (09:01)
--- NOTE | 2019-02-19 14:19 | NUR ---
Family Contact: SW called the pts son, Brody Burrell ([phone]), and informed him that the pt was being discharged and he stated that he will arrive at 5pm to pick her up.
--- NOTE | 2019-02-19 14:20 | NUR ---
UR Note: PEYTON called Marti ([phone]), [facility] clinical manager home care, and informed her that the pt is being discharged today.
--- NOTE | 2019-02-19 15:18 | NUR ---
Discharge Note: Pt was discharged to her home [place] at [address] [place] [address]; ([phone]). Pts son, Brody Burrell ([phone]), picked up the pt around 5pm. Upon discharge, the pt appeared to be in a euthymic mood and presented with a distressed affect. The pt denied suicidal and homicidal ideation as well as auditory and visual hallucinations. Pt will be under the care of her psychiatrist, Dr. Rodriguez, located at [address] [facility] # [address] [phone]; ; and a fax of records was sent to: . Pts psychiatrist stated that the office will reach out to the pt to schedule an appointment for aftercare and that the pt has been a regular in her office. Pt will also be under the care of her face man, Dr. Fish, [place] [address] [place] [address]; .
[2019-02-19 16:00] VITALS: BP 123/82
--- NOTE | 2019-02-19 17:06 | NUR ---
GPS/RN-NOTES PATIENT DISCHARGE TO HOME TODAY. DR. ESPINOSA AND ANDRZEJ GALDAMEZ AWARE AND AGREED OF THE DISCHARGE WITH ORDERS. ALL DISCHARGE MEDICATIONS WAS REVIEWED WITH THE PATIENT AND SON OTTO AT BEDSIDE WITH UNDERSTANDING. RX WAS GIVEN TO THE SON OTTO AND ALL HER BELONGINGS INCLUDING OWN MEDICATIONS AND CELLPHONE . PATIENT DID NOT VERBALIZE SI/HI,DENIES VISUAL/AUDITORY HALLUCINATIONS AT THE TIME OF DISCHARGE. INSTRUCTED PATIENT TO CALL 911 OR GO TO THE NEAREST EMERGENCY ROOM IN -CASE OF EMERGENCY.PATIENT LEFT THE UNIT IN STABLE CONDITION ALERT ORIENTED X3 AMBULATORY WITH STEADY GAIT. TRANSPLANT RN BY AND DTR SANIA VIA PRIVATE CAR PATIENT WAS ASSISTED BY ONE PIPE SMOKER MACHINE OPERATOR STAFF IN THE LOBBY FOR SAFETY.
== END 2019-02-19 17:00 | disposition home or self-care (01) | DRG 885 ==
LOC: ER 11:04 → GPS 14:03
PROVIDERS: ADMIT Psychiatry & Neurology Psychiatry; ATTEND Student in an Organized Health Care Education/Training Program
DX: F33.9 Major depressive disorder, recurrent, unspecified (principal); N17.0 Acute kidney failure with tubular necrosis; F29 Unspecified psychosis not due to a substance or known physiological condition; J45.909 Unspecified asthma, uncomplicated; I10 Essential (primary) hypertension; F41.9 Anxiety disorder, unspecified; E87.6 Hypokalemia; H93.19 Tinnitus, unspecified ear; G47.00 Insomnia, unspecified; R29.6 Repeated falls; F39 Unspecified mood [affective] disorder; E83.9 Disorder of mineral metabolism, unspecified; I45.81 Long QT syndrome; M17.10 Unilateral primary osteoarthritis, unspecified knee; R53.1 Weakness; Z79.899 Other long term (current) drug therapy
CPT/HCPCS: 36415; 70450-TC; 76770-TC; 80048-TC; 80053-TC; 80061-TC; 80076-TC; 80305; 81000-TC; 82565-TC; 82570-TC; 82962-TC; 83690-TC; 83735-TC; 84100-TC; 84300-TC; 84443-TC; 84484-TC; 85025-TC; 87081-TC; 87086-TC; 93307-TC; 97116-TC; 97530-TC; G0480

== ENCOUNTER 2022-03-03 12:02 | Emergency (ER) | payer MEDICARE, BC ==
[~2022-03-03] VITALS: Ht 162.6 cm; Wt 77.1 kg
[~2022-03-03 12:02] MED LIST changes: +HYDR-3980 PO; -LAMO100T PO; +LAMO100T17 PO
[2022-03-03 12:33] LABS: BASOPHILS # (AUTO) 0.1 K/uL (0.0-0.2); BASOPHILS % (AUTO) 0.8 % (0.0-2.0); EOSINOPHILS % (AUTO) 0.5 % (0.0-6.0); HEMATOCRIT 44 % (33-45); HEMOGLOBIN 14.4 g/dL (11.5-14.8); LYMPHOCYTES # (AUTO) 1.9 K/uL (0.8-4.8); LYMPHOCYTES % (AUTO) 24.2 % (20.0-44.0); MEAN CORPUSCULAR HGB CONC 33 g/dl (31.0-36.0); MEAN CORPUSCULAR VOLUME 89 fL (82-100); MONOCYTES # (AUTO) 0.7 K/uL (0.1-1.30); MONOCYTES % (AUTO) 9.1 % (2.0-12.0); NEUTROPHILS # (AUTO) 5.1 K/uL (1.8-8.9); NEUTROPHILS % (AUTO) 65.4 % (43.0-81.0); PLATELET COUNT (AUTO) 261 K/uL (150-450); RED BLOOD CELL COUNT(AUTO) 4.98 MIL/uL (4.0-5.2); WHITE BLOOD COUNT (AUTO) 7.8 K/uL (4.3-11.0)
[2022-03-03 12:34] LABS: BILIRUBIN,URINE NEGATIVE (NEGATIVE); COLOR,URINE YELLOW (YELLOW); LEUKOCYTE ESTERASE ,URINE 2+ (NEGATIVE); NITRITE, URINE NEGATIVE (NEGATIVE); PROTEIN,URINE NEGATIVE (NEGATIVE); UGLUCOSE NEGATIVE (NEGATIVE); UROBILINOGEN,URINE 0.2 EU/dL (0.2)
[2022-03-03] MEDS ORDERED: VILA20TA PO (12:41)
[2022-03-03] MEDS ORDERED: AMLO-213 PO (12:41)
[2022-03-03] MEDS ORDERED: ESCI10TA PO (12:41)
[2022-03-03] MEDS ORDERED: MONT10TA22 PO (12:41)
[2022-03-03] MEDS ORDERED: ATOR20TA PO (12:41)
[2022-03-03] MEDS ORDERED: RAME8TAB24 PO (12:41)
[2022-03-03] MEDS ORDERED: RISP1TAB97 PO (12:41)
[2022-03-03] MEDS ORDERED: POTA10TA48 PO (12:41)
[2022-03-03 12:49] LABS: CALCIUM, SERUM 9.8 mg/dL (8.5-10.1); CARBON DIOXIDE 28 mmol/L (21-32); CHLORIDE 106 mmol/L (98-107); CREATININE 1.2 mg/dL (0.6-1.3); GLUCOSE 126 mg/dL (74-106); POTASSIUM 3.2 mmol/L (3.5-5.1); SODIUM SERUM 145 mmol/L (136-145); UREA NITROGEN, BLOOD 12 mg/dL (7-18)
--- NOTE | 2022-03-03 12:51 | NUR ---
BIB for spouse psych evaluation "Hearing voices xcouple days". PT AAOX3, VSS. RR EVEN & UNLABORED. PT CALM & COOPERATIVE, DENIES HI/SI, AWAITING EVAL BY ERMD. WILL CONT TO MONITOR. & SITTER AT BS.
[2022-03-03 12:59] LABS: ALANINE AMINOTRANSFERASE 18 U/L (12-78); ALBUMIN 4.2 g/dL (3.4-5.0); ALCOHOL, BLOOD < 3 mg/dL (0-0); ALKALINE PHOSPHATASE 78 U/L (46-116); ASPARTATE AMINOTRANSFERASE 17 U/L (15-37); BILIRUBIN,DIRECT 0.3 mg/dL (0.0-0.2); BILIRUBIN,TOTAL 0.9 mg/dL (0.2-1.0); TOTAL PROTEIN, SERUM 8.3 g/dL (6.4-8.2)
[2022-03-03 13:00] LABS: ACETAMINOPHEN < 10 ug/ml (10-30)
--- NOTE | 2022-03-03 13:10 | NUR ---
NOTIFIED [facility] FOR PATIENT NEEDING PSYCH EVAL.
[2022-03-03 13:11] LABS: THYROID STIMULATING HORMONE 1.761 uIU/mL (0.358-3.74)
[2022-03-03 13:41] LABS: BACTERIA,URINE Few /HPF (None Seen); RBC,URINE 0-2 /HPF (0-2); SQUAMOUS EPITHELIAL CELL,UR Few /HPF (None Seen)
--- NOTE | 2022-03-03 14:00 | NUR ---
ART, IT RISK AND ASSURANCE SENIOR MANAGER AT FOR EVAL.
--- NOTE | 2022-03-03 16:30 | NUR ---
JAGDEEP VIGIL [phone]
--- NOTE | 2022-03-03 16:30 | NUR ---
ACCEPTED AT [facility] UNDER DR. LOPEZ. [phone] FOR REPORT.
--- NOTE | 2022-03-03 16:37 | NUR ---
[facility] ETA 1800 WITH [facility].
--- NOTE | 2022-03-03 17:24 | NUR ---
REPORT GIVEN TO PERLITA ZIMMERMAN FOR ANGIE
--- NOTE | 2022-03-03 18:52 | NUR ---
[facility] AT BEDSIDE. CLINICALS ALONG WITH IMAGING CD GIVEN TO AMBULANCE CREW.
[2022-03-03 19:00] VITALS: BP 122/70
--- NOTE | 2022-03-03 19:08 | NUR ---
PICKED UP BY TRANSPORT IN STABLE CONDITION
== END 2022-03-03 19:12 ==
LOC: ER 12:12
DX: R44.1 Visual hallucinations (principal); R44.0 Auditory hallucinations; I10 Essential (primary) hypertension; Z79.899 Other long term (current) drug therapy; Z87.09 Personal history of other diseases of the respiratory system; Z20.822 Contact with and (suspected) exposure to COVID-19
CPT/HCPCS: 36415; 80048-TC; 80076-TC; 81001; 83735-TC; 84439-TC; 84443-TC; 85025-TC; 87086-TC; C9803; G0480